=== PATIENT | male | born 1995 | race Two or more races ===

== ENCOUNTER 2023-03-04 18:52 | Emergency (ER) | payer OTHER ==
[~2023-03-04] VITALS: Ht 185.4 cm; Wt 76.5 kg
[2023-03-05] MEDS ORDERED: TETANUS-DIPTH-ACEL PERTUSSIS 0.5ML SYR Tdap IM ONE (01:15)
[2023-03-05] MEDS ORDERED: cefTRIAXone SOD 1,000 MG VL IM ONE (01:15)
[2023-03-05] MEDS ORDERED: IBUP-1456 PO (01:29)
[2023-03-05] MEDS ORDERED: CEPH500C PO (01:29)
[2023-03-05] MEDS ORDERED: KETOROLAC TROMETH 60MG/2ML VIAL IM ONE (01:30)
[2023-03-05 06:06] VITALS: BP 140/86; PULSE 86; RESP 12; TEMP 98.8; O2SAT 98
== END 2023-03-05 06:10 | disposition home or self-care (01) ==
LOC: ER 18:52
DX: S71.111A Laceration without foreign body, right thigh, initial encounter (principal); Z79.1 Long term (current) use of non-steroidal anti-inflammatories (NSAID); Z79.899 Other long term (current) drug therapy; W26.8XXA Contact with other sharp object(s), not elsewhere classified, initial encounter; Y93.89 Activity, other specified; Y92.89 Other specified places as the place of occurrence of the external cause; Y99.0 Civilian activity done for income or pay
CPT/HCPCS: 12002; 29505; 90471; 90715; 96372; 99284; J0696; J1885